=== PATIENT | male | born 1960 | race Caucasian/White ===

== ENCOUNTER → 2016-12-02 | Outpatient (CLI) | payer BC ==
--- NOTE | 2016-12-02 14:09 | ECHOS ---
DATE OF SERVICE: 12/02/2016 AGE: 56Y SEX: M HT: 75" WT: 280 lbs. Protocol Margarito: X Others: Stress Echo Stage: 3 Dur. of Exercise: 7:00 *Heart Rate Blood Pressure *Rest: 84 Rest: 122/57 * *Max. Achieved: 147 Maximum BP: 184/83 85% PMHR: 139 100% PMHR: 164 *METS: 8.1 INDICATIONS: Shortness of breath. MEDICATIONS: Aspirin, Lotensin. Baseline rhythm is sinus mechanism, rate of 84, normal intervals. Normal electrocardiogram. Baseline blood pressure 122/57 mmHg. Patient exercised on Margarito protocol for 7 minutes reaching peak rate of 147 beats per minute, which is equal to 90% maximum predicted heart rate; peak blood pressure 184/83 mmHg. Test was terminated secondary to fatigue. There no chest pain. Electrocardiograph monitoring revealed occasional PVCs. There was no evidence of diagnostic ischemic ST deviation. FINDINGS: Baseline echocardiogram revealed normal wall thickening and motion. At peak exercise there was normal wall motion augmentation with no hypokinesis or dyskinesis. CONCLUSION: 1. Good exercise tolerance with normal electrocardiograph response to exercise. 2. Normal stress echocardiogram with no evidence of stress-induced ischemia.
== END | disposition home or self-care (01) ==
LOC: RADNMMAIN 09:35
PROVIDERS: ATTEND Family Medicine
DX: R06.09 Other forms of dyspnea (principal)
CPT/HCPCS: 93017; 93350

== ENCOUNTER → 2020-06-22 | Day surgery (SDC) | payer BC ==
[2020-06-20 14:32] VITALS: BMI 34.9
[~2020-06-22] MED LIST: LACTATED RINGERS 1,000 ML IV SCH; LIDOCAINE 1% INJ 10MG/ML (20 ML MDV) ONE; PROPOFOL 10 MG/ML 20 ML VIAL IV ONE
[2020-06-22 10:39] VITALS: TEMP 97.4
--- NOTE | 2020-06-22 11:31 | P.PCN ---
Date of Procedure: 06/22/20 Procedure(s) Performed: BRIEF HISTORY: Patient is a 59-year-old pleasant white male scheduled for an elective colonoscopy as a part of screening for colon rectal neoplasia. His last coloscopy was 9 years ago. PROCEDURE PERFORMED: Colonoscopy with snare polypectomy. PREOPERATIVE DIAGNOSIS: Screening for colon cancer. IV sedation per Anesthesia. PROCEDURE: After informed consent was obtained, the patient, was brought into the endoscopy unit. IV sedation was administered by Anesthesia under continuous monitoring. Digital rectal examination was normal. Initially the Olympus CF-160 flexible video colonoscope was then inserted in the rectum, gradually advanced into the cecum without any difficulty. Careful examination was performed as the scope was gradually being withdrawn. Ileocecal valve and the appendiceal orifice were visualized and appeared normal. Prep was excellent. Mucosa of the cecum, ascending colon, appeared normal. In the transverse colon there was a 5-6 a limited polyp that was removed by snare polypectomy. In the proximal descending colon there was another 7 mm sessile polyp removed by snare polypectomy. Rest of the transverse colon, descending colon, sigmoid colon, and rectum appeared normal. Retroflexion was performed in the rectum and no lesions were seen. The patient tolerated the procedure well. IMPRESSION: 5-6 mm transverse colon polyp status post polypectomy 7 mm descending colon polyp status post polypectomy RECOMMENDATIONS: Findings of this examination were discussed with the patient as well as his family. He was advised to follow with the biopsy results. If the biopsy shows an adenoma he can have a repeat colonoscopy in 5 years.
[2020-06-22 11:34] VITALS: RESP 17
[2020-06-22 11:44] VITALS: BP 155/88; PULSE 66
== END ==
LOC: ORWHC2ENDO 10:16
PROVIDERS: ATTEND Internal Medicine Gastroenterology
DX: Z12.11 Encounter for screening for malignant neoplasm of colon (principal); K63.5 Polyp of colon; I10 Essential (primary) hypertension; K21.9 Gastro-esophageal reflux disease without esophagitis; Z87.891 Personal history of nicotine dependence; Z79.899 Other long term (current) drug therapy
CPT/HCPCS: 45385; 88305; J2001; J2704